=== PATIENT | female | born 1965 | race Caucasian/White ===

== ENCOUNTER 2020-02-20 04:22 | Emergency (ER) | payer OTHER ==
[~2020-02-20] VITALS: Ht 167.6 cm; Wt 113.4 kg
[~2020-02-20 04:22] MED LIST: ALBU90OI INH; AMOCLA500 PO; ATOR20; BUPR100; CIPR500 PO; CITA20; CYCL10 PO; DIAZ5 PO; DIPH12.5EL PO; DOXY100 PO; ESCI20; FLUT110OIA INH; GABA300T24; HYDACE5 PO; HYDCHL12.5; IBUP800; META800 PO; METF500 PO; NAPR550 PO; Naprosyn500 MG PO; Nitrostat0.3 MG SL; PHENA200 PO; PRED10 PO; Prednisone20 MG PO; RXCEPH500 PO; RXHYDACE PO; TRAM50 PO; Ultram50 MG PO; Vanadom350 MG
[2020-02-20] MEDS ORDERED: ERYT1OIN BOTHEYES (04:51)
== END 2020-02-20 04:58 | disposition home or self-care (01) ==
LOC: ER 04:22
DX: S05.02XA Injury of conjunctiva and corneal abrasion without foreign body, left eye, initial encounter (principal); S05.01XA Injury of conjunctiva and corneal abrasion without foreign body, right eye, initial encounter; F31.9 Bipolar disorder, unspecified; F17.210 Nicotine dependence, cigarettes, uncomplicated; Z88.8 Allergy status to other drugs, medicaments and biological substances; Z79.84 Long term (current) use of oral hypoglycemic drugs; Z79.899 Other long term (current) drug therapy; X58.XXXA Exposure to other specified factors, initial encounter
CPT/HCPCS: 99283

== ENCOUNTER → 2025-01-16 | Outpatient (CLI) | payer OTHER ==
[~2025-01-16] MED LIST changes: +ERYT1OIN BOTHEYES
[2025-01-16 17:30] LABS: Chlamydia Trachomatis Urine NOT DETECTED (NOT DETECT); Neisseria Gonorrhoea Urine NOT DETECTED (NOT DETECT)
== END | disposition home or self-care (01) ==
LOC: LAB 15:21 → LAB SHORT 15:21
PROVIDERS: Family Medicine
DX: E11.65 Type 2 diabetes mellitus with hyperglycemia (principal); R30.0 Dysuria; Z72.51 High risk heterosexual behavior
CPT/HCPCS: 87077; 87086; 87186; 87491; 87591

== ENCOUNTER 2025-07-23 01:35 | Emergency (ER) | payer OTHER ==
[~2025-07-23] VITALS: Ht 167.6 cm; Wt 95.2 kg
[2025-07-23 03:15] VITALS: BP 135/86
[2025-07-23] MEDS ORDERED: CYCL10 PO (03:18)
[2025-07-23] MEDS ORDERED: IBU600 MG PO (03:18)
== END 2025-07-23 03:24 | disposition home or self-care (01) ==
LOC: ER 01:35
DX: S09.90XA Unspecified injury of head, initial encounter (principal); M54.2 Cervicalgia; E78.5 Hyperlipidemia, unspecified; G62.9 Polyneuropathy, unspecified; F17.210 Nicotine dependence, cigarettes, uncomplicated; Z88.5 Allergy status to narcotic agent; Z79.84 Long term (current) use of oral hypoglycemic drugs; Z79.52 Long term (current) use of systemic steroids; Z79.899 Other long term (current) drug therapy; Y04.2XXA Assault by strike against or bumped into by another person, initial encounter
CPT/HCPCS: 70450; 72125; 99284-25; A9270